=== PATIENT | female | born 1945 | race Caucasian/White ===

== ENCOUNTER → 2016-07-01 | Outpatient (CLI) | payer MEDICARE, BC ==
--- NOTE | 2016-07-01 11:11 | WWHP ---
DATE OF SERVICE: 07/01/2016 CHIEF COMPLAINT: The patient is here for her routine gynecologic exam and mammogram. HPI: This is a 70-year-old, G2, P2 with an LMP of 1989. The patient is without gynecologic complaints. 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 MEDICATIONS: 1. Lipitor generic 20 mg daily. 2. Labetalol 100 mg b.i.d. 3. Multivitamin daily. Allergies to SHELLFISH. No known drug allergies. 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 SOCIAL HISTORY: She denies tobacco and drug use and has 0 to 1 alcoholic drink per month. She is retired and likes to sing with her nondenominational group. She also has an elderly mother who has Alzheimer's. REVIEW OF SYSTEMS: Weight has been stable. RESPIRATORY: She has had some sinus issues that leads to coughing. She has seen Dr. Mccauley for this. She denies respiratory problems. GI: Occasional irritable bowel symptoms. She denies maltreatment or falling. : Occasional slight urinary leakage with coughing. PHYSICAL EXAM: Blood pressure 121/75. Height 5 feet 5 inches. Weight 186 pounds. Temperature 97.4, pulse 78. This a well-developed, well-nourished white female who is alert and oriented x3 in no acute distress. HEENT is within normal limits. NECK: Supple without mass or thyromegaly. CHEST AND LUNGS: Clear to auscultation. HEART: Regular rate and rhythm. Breasts are without mass or discharge. Axillary exam is negative for adenopathy. BACK: Negative for CVA tenderness. ABDOMEN: Soft, nontender, without palpable masses. PELVIC EXAM: External genitalia reveals mild to moderate atrophy without lesions. Cervix and vagina reveal mild to moderate atrophy without lesions. There is no evidence of prolapse. The uterus is midposition, nongravid size and nontender. There are no palpable adnexal masses or tenderness. Rectovaginal exam is negative for mass or tenderness and is negative for occult blood. EXTREMITIES: Nontender. IMPRESSION: 1. A 70-year-old menopausal female with normal gynecologic exam. 2. History of osteopenia, status post 5 years use of Fosamax in the past. PLAN: 1. Pap smear was deferred, since she had a normal one last year. 2. Self breast examination was discussed. 3. Mammogram will be done today. 4. She did receive a flu shot this past fall. 5. I have recommended screening colonoscopy, since she has never had this done. Dr. Zhao's card will be given to patient for this. 6. Osteoporosis prevention was discussed. Will plan on repeating a bone density testing in approximately one year. 7. She will return in one year.
--- NOTE | 2016-07-02 11:19 | MM ---
Reason for exam: screening (asymptomatic). Last mammogram was performed 1 year ago. History: Patient is postmenopausal and history of other cancer. Benign excisional biopsy of the left breast. Benign excisional biopsy of the right breast. Physical Findings: A clinical breast exam by your physician is recommended on an annual basis and results should be correlated with mammographic findings. MG 3D Screening Mammo W/Cad Bilateral CC and MLO view(s) were taken. Prior study comparison: June 18, 2015, bilateral MG screening mammo w CAD. May 01, 2014, bilateral MG screening mammo w CAD. The breast tissue is heterogeneously dense. This may lower the sensitivity of mammography. No significant changes when compared with prior studies. ASSESSMENT: Benign, BI-RAD 2 RECOMMENDATION: Routine screening mammogram of both breasts in 1 year.
== END ==
LOC: WWCWWP 08:35
PROVIDERS: ATTEND Obstetrics & Gynecology
DX: Z12.31 Encounter for screening mammogram for malignant neoplasm of breast (principal)
CPT/HCPCS: 77063; G0202

== ENCOUNTER → 2017-08-10 | Outpatient (CLI) | payer MEDICARE, BC ==
[2017-08-10 13:27] VITALS: BP 142/71; PULSE 62; RESP 18; TEMP 96.6; BMI 30.7
--- NOTE | 2017-08-10 14:45 | P.HPOB ---
History of Present Illness H&P Date: 08/10/17 Chief Complaint: The patient is here for her routine gynecologic exam and mammogram. This is a 71-year-old G2 PII within LMP of 1989. The patient is without gynecologic complaints and denies any postmenopausal bleeding. Review of Systems She denies respiratory, cardiac and G.I. problems. She denies maltreatment or problems with falling. : she infrequently has urinary leakage with coughing or sneezing. She had a brief episode of dizziness during her recent vacation but this did resolve. Past Medical History Past Medical History: Cancer (skin cancer), Hyperlipidemia, Hypertension Additional Past Medical History / Comment(s): Last Pap 05/2015. Last mammogram . History of osteopenia and is status post greater than 5 years use of Fosamax. History of Any Multi-Drug Resistant Organisms: None Reported Past Surgical History: Appendectomy, Tubal Ligation Additional Past Surgical History / Comment(s): Bilateral Breast biopsies, years ago Past Anesthesia/Blood Transfusion Reactions: No Reported Reaction Past Psychological History: No Psychological Hx Reported Smoking Status: Never smoker - Past Family History Father Family Medical History: Hypertension Additional Family Medical History / Comment(s): Bypass, leukemia,skin cancer Mother Additional Family Medical History / Comment(s): Uterine cancer Medications and Allergies Home Medications Medication Instructions Recorded Confirmed Type Atorvastatin [Lipitor] 1 mg PO HS 08/10/17 08/10/17 History Labetalol [Trandate] 200 mg PO BID 08/10/17 08/10/17 History Allergies Allergy/AdvReac Type Severity Reaction Status Date / Time shellfish derived [Shellfish] Allergy Abdominal Verified 08/10/17 13:48 Pain Exam - Vital Signs Vital signs: Vital Signs Temp Pulse Resp BP 08/10/17 13:23 96.6 F L 62 18 142/71 Intake and Output 08/09/17 08/10/17 08/10/17 22:59 06:59 14:59 Other: Weight 86.183 kg Patient Weight 08/11/17 06:59 Weight 86.183 kg This is a well-developed well-nourished white female who is alert and oriented times 3 in no acute distress. BMI 31. HEENT: Within normal limits. NECK: Supple without mass or thyromegaly. CHEST AND LUNGS: Clear to auscultation. HEART: Regular rate and rhythm. BREASTS: Are without mass or discharge. AXILLARY EXAM: Negative for adenopathy. BACK: Negative for CVA tenderness. ABDOMEN: Soft, nontender, without palpable masses. PELVIC EXAM: Normal external genitalia with moderate atrophy. Cervix and vagina appear normal with mild to moderate atrophy. There is no unusual discharge. There is no evidence of prolapse. The uterus is midposition, nongravid size and nontender. There are no palpable adnexal masses or tenderness. RECTAL EXAM: rectovaginal exam is negative for mass or tenderness and is negative for occult blood. EXTREMITIES: Nontender. IMPRESSION: 1. This is a 71-year-old menopausal female with normal gynecologic exam. 2. History of osteopenia status post greater than 5 years use of Fosamax. PLAN: 1. Pap smear was performed. 2. Self breast examination was discussed. 3. Screening mammogram will be done today. 4. Osteoporosis prevention was discussed. She will plan on repeating the bone density testing next year. 5. She did receive a flu shot this past fall. 6. She will return in one year.
--- NOTE | 2017-08-11 14:11 | MM ---
Reason for exam: screening (asymptomatic). Last mammogram was performed 1 year and 1 month ago. History: Patient is postmenopausal and history of other cancer. Benign excisional biopsy of the left breast. Benign excisional biopsy of the right breast. Physical Findings: A clinical breast exam by your physician is recommended on an annual basis and results should be correlated with mammographic findings. MG 3D Screening Mammo W/Cad Bilateral CC and MLO view(s) were taken. Prior study comparison: July 01, 2016, bilateral MG 3d screening mammo w/cad. June 18, 2015, bilateral MG screening mammo w CAD. The breast tissue is heterogeneously dense. This may lower the sensitivity of mammography. Stable oil cyst central right breast. No significant changes when compared with prior studies. ASSESSMENT: Negative, BI-RAD 1 RECOMMENDATION: Routine screening mammogram of both breasts in 1 year.
== END | disposition home or self-care (01) ==
LOC: WWCWWP 13:07
PROVIDERS: ATTEND Obstetrics & Gynecology
DX: Z12.31 Encounter for screening mammogram for malignant neoplasm of breast (principal)
CPT/HCPCS: 77063; 77067

== ENCOUNTER → 2018-05-19 | Outpatient (CLI) | payer MEDICARE, BC ==
[2018-05-19 09:09] LABS: Blood Urea Nitrogen 7 mg/dL (7-17)
--- NOTE | 2018-05-19 09:49 | CT ---
EXAMINATION TYPE: CT brain w con, CT sinus wo con DATE OF EXAM: 05/19/2018 COMPARISON: NONE HISTORY: Benign paroxysmal vertigo bilateral. CT DLP: 1012.7 (accession [id number]), 500.1 (accession [id number]) mGycm. Automated Exposure Control fo r Dose Reduction was Utilized. TECHNIQUE: CT scan of the brain and sinuses are both performed with IV contrast, axial images are obt ained, coronal reformatted images are also reviewed. Patient is injected with 100 cc of Isovue-300. FINDINGS: No abnormal enhancing parenchymal masses are identified. Ventricles and sulci are mildly pr ominent consistent with mild diffuse age-related cerebral atrophy. Persistent anterior metopic suture is incidentally seen. Sinus CT shows patchy web like opacification in the smaller right sphenoid sinus. There are nonformed or hypoplastic bilateral frontal sinuses. Remainder paranasal sinuses are clear. The ostiomeatal co mplex is patent bilaterally on the coronal images. Visualized portion of mastoid air cells show no abnormal opacification. The globes are intact bilate rally. IMPRESSION: 1. Perhaps mild acute right sphenoid sinusitis. Correlate clinically. 2. Mild diffuse age-related cerebral atrophy without suspicious enhancing intraparenchymal mass.
== END ==
LOC: RADCTMAIN 08:09
PROVIDERS: ATTEND Family Medicine
DX: G31.1 Senile degeneration of brain, not elsewhere classified (principal); J32.9 Chronic sinusitis, unspecified; H81.10 Benign paroxysmal vertigo, unspecified ear
CPT/HCPCS: 82565; 84520; 70460; 36415; 70486; Q9967

== ENCOUNTER → 2018-09-20 | Outpatient (CLI) | payer MEDICARE, BC ==
[2018-09-20 13:01] VITALS: BP 157/80; PULSE 72; RESP 18; TEMP 97.9; BMI 29.7
--- NOTE | 2018-09-20 13:50 | P.HPOB ---
History of Present Illness H&P Date: 09/20/18 Chief Complaint: The patient is here for her routine gynecologic exam and ma mmogram. This is a 72-year-old G2 PII with an LMP of 1989. The patient is without gynecologic complaints and denies any postmenopausal bleeding. Review of Systems She has lost about 5 pounds over the last year. She denies respiratory, cardiac and G.I. problems. She denies maltreatment or problems with falling. : she denies any significant problems with urinary leakage, but on long trips she will typically wear a pad. 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 History of osteopenia and is status post greater than 5 years use of Fosamax. 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 History of Any Multi-Drug Resistant Organisms: None Reported Past Surgical History: Appendectomy, Tonsillectomy, Tubal Ligation Additional Past Surgical History / Comment(s): Bilateral Breast biopsies, years ago Past Anesthesia/Blood Transfusion Reactions: No Reported Reaction Past Psychological History: No Psychological Hx Reported Smoking Status: Never smoker Past Alcohol Use History: Occasional (0-1 per month) Past Drug Use History: None Reported Additional History: She has been since 1986 and this is her 2nd marriage. She is retired and likes to sing with her nondenominational group. - Past Family History Father Family Medical History: Hypertension Additional Family Medical History / Comment(s): Bypass, leukemia,skin cancer, renal failure. Mother Family Medical History: Cancer, Dementia Additional Family Medical History / Comment(s): Uterine cancer Son(s) Family Medical History: Cancer Additional Family Medical History / Comment(s): Neuroendocrine cancer. Medications and Allergies Home Medications Medication Instructions Recorded Confirmed Type Atorvastatin [Lipitor] 1 mg PO HS 08/10/17 09/20/18 History Labetalol [Trandate] 300 mg PO BID 08/10/17 09/20/18 History Allergies Allergy/AdvReac Type Severity Reaction Status Date / Time shellfish derived [Shellfish] Allergy Abdominal Verified 09/20/18 12:56 Pain Exam Vital Signs Temp Pulse Resp BP Pulse Ox 09/20/18 12:58 97.9 F 72 18 157/80 96 Intake and Output 09/19/18 09/20/18 09/20/18 22:59 06:59 14:59 Other: Weight 83.461 kg Height 5'6", weight 184 pounds, BMI 29.7. This is a well-developed well-nourished white female who is alert and oriented times 3 in no acute distress. HEENT: Within normal limits. NECK: Supple without mass or thyromegaly. CHEST AND LUNGS: Clear to auscultation. HEART: Regular rate and rhythm. BREASTS: Are without mass or discharge. The left breast has central nipple inversion which the patient states she is had for many years. AXILLARY EXAM: Negative for adenopathy. BACK: Negative for CVA tenderness. ABDOMEN: Soft, nontender, without palpable masses. PELVIC EXAM:External genitalia has mild to moderate atrophy. There are several small inclusion cysts in the labia .the largest measures approximately 4 mm in the left labia. There are 3 other ones in the left each measuring about 2-3 mm. There is also a right labial inclusion cysts measuring approximately 2 to 3 mm. These all have a benign periods and the patient states that they have been there for many years. They are non-erythematous and nontender. Cervix and vagina appear normal with mild atrophy. There is no unusual discharge. There is no evidence of prolapse. The uterus is midposition, nongravid size and nontender. There are no palpable adnexal masses or tenderness. RECTAL EXAM: rectovaginal exam is negative for mass or tenderness and is negative for occult blood. EXTREMITIES: Nontender. IMPRESSION: 1. 72-year-old menopausal female with normal gynecologic exam. 2. Stable benign labial inclusion cysts. 3. History of osteopenia status post greater than 5 years use of Fosamax. PLAN: 1. Pap smear was deferred since she had a normal one on 08/10/2017. 2. Self breast awareness was discussed with the patient. 3. Screening mammogram will be done today. 4. Osteoporosis prevention was discussed. I have stressed the importance of adequate calcium, vitamin D and regular exercise. Recommended amounts of calcium and vitamin D were also discussed. I have recommended repeating the bone density tests since her last one has been about 5 years. She would like to do this next year. 5. She did receive a flu shot this past fall. 6.She was advised to return in one year for her annual well woman exam.
--- NOTE | 2018-09-22 10:30 | MM ---
Reason for exam: screening (asymptomatic). Last mammogram was performed 1 year and 1 month ago. History: Patient is postmenopausal and history of other cancer. Benign excisional biopsy of the left breast. Benign excisional biopsy of the right breast. Physical Findings: A clinical breast exam by your physician is recommended on an annual basis and results should be correlated with mammographic findings. MG 3D Screening Mammo W/Cad Bilateral CC and MLO view(s) were taken. Prior study comparison: August 10, 2017, bilateral MG 3d screening mammo w/cad. July 01, 2016, bilateral MG 3d screening mammo w/cad. The breast tissue is heterogeneously dense. This may lower the sensitivity of mammography. No significant changes when compared with prior studies. ASSESSMENT: Benign, BI-RAD 2 RECOMMENDATION: Routine screening mammogram of both breasts in 1 year.
== END | disposition home or self-care (01) ==
LOC: WWCWWP 12:30
PROVIDERS: ATTEND Obstetrics & Gynecology
DX: Z12.31 Encounter for screening mammogram for malignant neoplasm of breast (principal)
CPT/HCPCS: 77063; 77067

== ENCOUNTER → 2021-04-16 | Outpatient (CLI) | payer MEDICARE, BC ==
[2021-04-16 09:45] VITALS: BP 156/76; PULSE 61; RESP 16; TEMP 98.1
--- NOTE | 2021-04-16 10:34 | P.HPOB ---
History of Present Illness H&P Date: 04/16/21 Chief Complaint: The patient is here for her routine gynecologic exam and ma mmogram. This is a 75-year-old with an LMP of 1989. The patient is without gynecologic complaints. Review of Systems The patient has lost 24 pounds over the last 2 years. She has been trying to lose weight with dietary changes and exercise. She also attributes some weight loss 2 not eating out due to the pandemic. She denies respiratory, cardiac, or G.I. problems. 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 History of osteopenia and is status post greater than 5 years use of Fosamax. 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 History of Any Multi-Drug Resistant Organisms: None Reported Past Surgical History: Appendectomy, Tonsillectomy, Tubal Ligation Additional Past Surgical History / Comment(s): Bilateral Breast biopsies, years ago Past Anesthesia/Blood Transfusion Reactions: No Reported Reaction Past Psychological History: No Psychological Hx Reported Smoking Status: Never smoker Past Alcohol Use History: Occasional (0-1 month) Past Drug Use History: None Reported Additional History: She has been since 1986 and this is her second marriage. She is retired and likes to sing with her [employer]. - Past Family History Father Family Medical History: Hypertension Additional Family Medical History / Comment(s): Bypass, leukemia,skin cancer, renal failure. Mother Family Medical History: Cancer, Dementia Additional Family Medical History / Comment(s): Uterine cancer Son(s) Family Medical History: Cancer Additional Family Medical History / Comment(s): Neuroendocrine cancer. from surgical Complications. Medications and Allergies Home Medications Medication Instructions Recorded Confirmed Type Atorvastatin [Lipitor] 1 mg PO HS 08/10/17 04/16/21 History Labetalol [Trandate] 300 mg PO BID 08/10/17 04/16/21 History Multivitamin [Multivitamins Adult 1 each PO DAILY 04/16/21 04/16/21 History Gummies] Allergies Allergy/AdvReac Type Severity Reaction Status Date / Time shellfish derived [Shellfish] Allergy Abdominal Verified 04/16/21 09:34 Pain Exam Vital Signs Temp Pulse Resp BP Pulse Ox 04/16/21 09:34 98.1 F 61 16 156/76 100 Intake and Output 04/15/21 04/16/21 04/16/21 22:59 06:59 14:59 Other: Weight 72.575 kg Height 5 feet 4-1/2 inches, weight 160 pounds, BMI 27.0. This is a well-developed well-nourished white female who is alert and oriented times 3 in no acute distress. HEENT: Within normal limits. NECK: Supple without mass or thyromegaly. CHEST AND LUNGS: Clear to auscultation. HEART: Regular rate and rhythm. BREASTS: Are without mass or discharge. There is central nipple inversion of the left nipple which she has had for many years. AXILLARY EXAM: Negative for adenopathy. BACK: Negative for CVA tenderness. ABDOMEN: Soft, nontender, without palpable masses. PELVIC EXAM: Normal external genitalia with mild atrophy. Cervix and vagina appear normal with mild atrophy. There is no unusual discharge. There is no evidence of prolapse. The uterus is midposition, nongravid size and nontender. There are no palpable adnexal masses or tenderness. RECTAL EXAM: Rectovaginal exam is negative for mass or tenderness and is negative for occult blood. EXTREMITIES: Nontender. IMPRESSION: 1. 75-year-old menopausal female with normal gynecologic exam. 2. History of osteopenia status post greater than 5 years use of Fosamax in the past. PLAN: 1. Pap smears have been discontinued. 2. Self breast awareness was discussed with the patient. We have also discussed symptoms associated with inflammatory breast cancer. 3. Screening mammogram will be done today. 4. Osteoporosis prevention was discussed. I have stressed the importance of adequate calcium, vitamin D and regular exercise. Recommended amounts of calcium and vitamin D were also discussed. She has an appointment for a bone density test in May 2021. The order slip was given to the patient for this. 5. She has completed her Covid vaccination series and did receive a booster as well. She did get her flu shot this fall. 6. She has been doing colorectal cancer screening with Cologuard testing through her PCP. 7. The patient was advised to return in 1-2 years for her well woman examination.
--- NOTE | 2021-04-17 11:58 | MM ---
Reason for exam: screening (asymptomatic). Last mammogram was performed 2 years and 7 months ago. History: Patient is postmenopausal and history of other cancer. Benign excisional biopsy of the left breast. Benign excisional biopsy of the right breast. Physical Findings: A clinical breast exam by your physician is recommended on an annual basis and results should be correlated with mammographic findings. MG 3D Screening Mammo W/Cad Bilateral CC and MLO view(s) were taken. Prior study comparison: September 20, 2018, bilateral MG 3d screening mammo w/cad. August 10, 2017, bilateral MG 3d screening mammo w/cad. The breast tissue is heterogeneously dense. This may lower the sensitivity of mammography. No significant changes when compared with prior studies. ASSESSMENT: Benign, BI-RAD 2 RECOMMENDATION: Routine screening mammogram of both breasts in 1 year.
== END ==
LOC: WWCWWP 09:12
PROVIDERS: ATTEND Obstetrics & Gynecology
DX: Z12.31 Encounter for screening mammogram for malignant neoplasm of breast (principal); Z01.419 Encounter for gynecological examination (general) (routine) without abnormal findings; E78.5 Hyperlipidemia, unspecified; I10 Essential (primary) hypertension; Z87.39 Personal history of other diseases of the musculoskeletal system and connective tissue; Z79.899 Other long term (current) drug therapy; Z91.013 Allergy to seafood
CPT/HCPCS: 77063; 77067

== ENCOUNTER → 2021-05-26 | Outpatient (CLI) | payer MEDICARE, BC ==
--- NOTE | 2021-05-27 07:30 | BD ---
EXAMINATION TYPE: Axial Bone Density DATE OF EXAM: 05/26/2021 COMPARISON: 2013 CLINICAL HISTORY: Postmenopausal screening Height: 5 FT 4 IN Weight: 164 FRAX RISK QUESTIONS: Alcohol (3 or more units per day): NO Family History (Parent hip fracture): NO Glucocorticoids (More than 3mos): NO (Ex: prednisone, prednisolone, methylprednisolone, dexamethasone, and hydrocortisone). History of Fracture in Adulthood: NO Secondary Osteoporosis: 1. Type 1 Diabetes: NO 2. Hyperthyroidism: NO 3. Menopause before 45: NO 4. Malnutrition: NO 5. Chronic liver disease: NO Rheumatoid Arthritis: NO Current Tobacco Use: NO RISK FACTORS HISTORY OF: Surgery to Spine/Hip(right/left)/Wrist (right/left): NO Family History of Osteoporosis: YES Active: YES Diet low in dairy products/other sources of calcium: NO Postmenopausal woman: YES Take estrogen and/or progesterone medications: NO Lost more than 2 inches in height since high school: YES Frequent falls: NO Poor Health: GOOD Hyperparathyroidism: NO Adrenal Insufficiency: NO MEDICATIONS: Additional Medications: BLOOD PRESSURE MEDS, ATORVASTATIN, Additional History: EXAM MEASUREMENTS: Bone mineral densitometry was performed using the [employer] System. Bone mineral density as measured about the Lumbar spine is: ----- L1-L4(G/cm2): 1.327 T Score Values are as follows: ----- L2: 1.9 ----- L3: 1.9 ----- L4: 0.1 ----- L1-L4: 1.2 Bone mineral density has: DECREASED -4.7 % since study of: 2013 Bone mineral density about the R hip (g/cm2): 0.846 Bone mineral density about the L hip (g/cm2): 0.846 T Score values are as follows: -----R Neck: -1.4 -----L Neck: -1.4 -----R Total: -0.8 -----L Total: -0.5 Bone mineral density has: DECREASED -6.0 % since study of: 2013 IMPRESSION: Osteopenia (T Score between -2.5 and -1). There is slightly increased risk of fracture and the patient may be considered for treatment. Re-Screen 2-5 years. NOTE: T-SCORE=SD OF THE YOUNG ADULT MEAN.
--- NOTE | 2021-05-27 10:32 | P.PN ---
Progress Note - Text Progress Note Date: 05/27/21 OUTPATIENT FOLLOW-UP NOTE TEST(S)/RESULTS: Bone density test on 05/26/2021 shows osteopenia slight decrease from her 2014 bone density test. METHOD OF NOTIFICATION: The patient was notified by phone. PATIENT COMMENTS: She states she has been trying to exercise more. DIAGNOSIS: Osteopenia. DISCUSSION: She has previously taken 5 or more years of Fosamax. I have stressed the importance of getting adequate calcium, vitamin D, and regular exercise. PLAN: We will plan on repeating bone density testing in 3 years.
== END | disposition home or self-care (01) ==
LOC: RADBDWWP 15:28
PROVIDERS: ATTEND Obstetrics & Gynecology
DX: M85.89 Other specified disorders of bone density and structure, multiple sites (principal); Z78.0 Asymptomatic menopausal state
CPT/HCPCS: 77080

== ENCOUNTER → 2022-06-03 | Outpatient (CLI) | payer MEDICARE, BC ==
[2022-06-03 09:20] VITALS: BP 158/78; PULSE 53; RESP 16; TEMP 98.4
--- NOTE | 2022-06-03 09:56 | P.HPOB ---
History of Present Illness H&P Date: 06/03/22 Chief Complaint: The patient is here for her routine gynecologic exam and ma mmogram. This is a 76-year-old with an LMP of 1989. The patient is without gynecologic complaints and denies any postmenopausal bleeding. Review of Systems The patient has gained 16 pounds over the last year. She denies respiratory, cardiac, or G.I. problems. HEENT: She has been having some issues with some secretions from her right eyelid and has been seeing her eye doctor about this. 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 History of osteopenia and is status post greater than 5 years use of Fosamax. 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 History of Any Multi-Drug Resistant Organisms: None Reported Past Surgical History: Appendectomy, Tonsillectomy, Tubal Ligation Additional Past Surgical History / Comment(s): Bilateral Breast biopsies, years ago Past Anesthesia/Blood Transfusion Reactions: No Reported Reaction Past Psychological History: No Psychological Hx Reported Smoking Status: Never smoker Past Alcohol Use History: Occasional (0-1 per month) Past Drug Use History: None Reported Additional History: She has been since 1986 and this is her second ma rriage. She is not sexually active. 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 - Past Family History Father Family Medical History: Hypertension Additional Family Medical History / Comment(s): Bypass, leukemia,skin cancer, renal failure. Mother Family Medical History: Cancer, Dementia Additional Family Medical History / Comment(s): Uterine cancer Son(s) Family Medical History: Cancer Additional Family Medical History / Comment(s): Neuroendocrine cancer. from surgical Complications. Medications and Allergies Home Medications Medication Instructions Recorded Confirmed Type Atorvastatin [Lipitor] 1 mg PO HS 08/10/17 06/03/22 History Labetalol [Trandate] 300 mg PO BID 08/10/17 06/03/22 History Multivitamin [Multivitamins Adult 1 each PO DAILY 04/16/21 06/03/22 History Gummies] Allergies Allergy/AdvReac Type Severity Reaction Status Date / Time shellfish derived [Shellfish] Allergy Abdominal Verified 06/03/22 09:16 Pain Exam Vital Signs Temp Pulse Resp BP Pulse Ox 06/03/22 09:17 98.4 F 53 L 16 158/78 95 Intake and Output 06/02/22 06/03/22 06/03/22 22:59 06:59 14:59 Other: Weight 79.832 kg Height 5 feet 4 inches, weight 176 pounds, BMI 30.2. This is a well-developed well-nourished white female who is alert and oriented times 3 in no acute distress. HEENT: Within normal limits. NECK: Supple without mass or thyromegaly. CHEST AND LUNGS: Clear to auscultation. HEART: Regular rate and rhythm. BREASTS: Are without mass or discharge. AXILLARY EXAM: Negative for adenopathy. BACK: Negative for CVA tenderness. ABDOMEN: Soft, nontender, without palpable masses. PELVIC EXAM: External genitalia reveals mild atrophy. There are 3 small benign- appearing dermal inclusion cysts in the left labia majora each measuring 5 mm or less. These are nontender and non-erythematous. Cervix and vagina appear normal with mild atrophy. There is no unusual discharge. There is no evidence of prolapse. The uterus is midposition, nongravid size and nontender. There are no palpable adnexal masses or tenderness. RECTAL EXAM: Rectovaginal exam is negative for mass or tenderness and is negative for occult blood. EXTREMITIES: Nontender. IMPRESSION: 1. 76-year-old menopausal female with benign-appearing small left vulvar inclusion cysts, otherwise unremarkable gynecologic exam. 2. History of osteopenia status post greater than 5 years use of Fosamax in the past. PLAN: 1. Pap smears have been discontinued. 2. Self breast awareness was discussed with the patient. We have also discussed symptoms associated with inflammatory breast cancer. 3. Screening mammogram will be done today. 4. Osteoporosis prevention was discussed. I have stressed the importance of adequate calcium, vitamin D and regular exercise. Recommended amounts of calcium and vitamin D were also discussed. Her last bone density test was done on 05/26/2021. We will plan on repeating it in approximately 2 years. 5. She has completed her Covid vaccination series and has received 2 boosters. 6. She was advised to return in one year for her annual well woman exam.
--- NOTE | 2022-06-04 09:06 | MM ---
Reason for Exam: Screening (asymptomatic). Last mammogram was performed 1 year(s) and 2 month(s) ago. Patient History: Menarche at age 10. First Full-Term at age 22. Postmenopausal. Benign Excisional Biopsy on the right side. Benign Excisional Biopsy on the left side. Risk Values: Felicia 5 year model risk: 2.3%. NCI Lifetime model risk: 4.1%. Prior Study Comparison: 08/10/2017 Bilateral Screening Mammogram, [facility]. 09/20/2018 Bilateral Screening Mammogram, [facility]. 04/16/2021 Bilateral Screening Mammogram, [facility]. Tissue Density: The breast tissue is heterogeneously dense. This may lower the sensitivity of mammography. Findings: Analyzed By CAD. There is no suspicious group of microcalcifications or new suspicious mass in either breast. Stable chronic nodularity within the right breast. Stable benign-appearing calcifications within both breasts. Overall Assessment: Benign, BI-RAD 2 Management: Screening Mammogram of both breasts in 1 year. A clinical breast exam by your physician is recommended on an annual basis and results should be correlated with mammographic findings. Electronically signed and approved by: Mike Zurita D.O.
== END ==
LOC: WWCWWP 09:07
PROVIDERS: ATTEND Obstetrics & Gynecology
DX: Z12.31 Encounter for screening mammogram for malignant neoplasm of breast (principal); Z01.411 Encounter for gynecological examination (general) (routine) with abnormal findings; E78.5 Hyperlipidemia, unspecified; I10 Essential (primary) hypertension; Z87.310 Personal history of (healed) osteoporosis fracture; Z91.013 Allergy to seafood
CPT/HCPCS: 77063; 77067

== ENCOUNTER → 2023-06-22 | Outpatient (CLI) | payer MEDICARE, BC ==
[2023-06-22 13:46] VITALS: BP 176/74; PULSE 60; RESP 17; TEMP 98.4
--- NOTE | 2023-06-22 14:11 | P.HPOB ---
History of Present Illness H&P Date: 06/22/23 Chief Complaint: The patient is here for her routine gynecologic exam and ma mmogram. This is a 77-year-old 001 with an LMP of 1989. The patient is without gynecologic complaints and denies any postmenopausal bleeding. Review of Systems The patient has lost 2 pounds over the last year. She denies respiratory, cardiac, or G.I. problems. 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 Hi story of osteopenia and is status post greater than 5 years use of Fosamax. 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 History of Any Multi-Drug Resistant Organisms: None Reported Past Surgical History: Appendectomy, Tonsillectomy, Tubal Ligation Additional Past Surgical History / Comment(s): Bilateral Breast biopsies, years ago. Skin cancer removal. Past Anesthesia/Blood Transfusion Reactions: No Reported Reaction Past Psychological History: No Psychological Hx Reported Smoking Status: Never smoker Past Alcohol Use History: Rare (2 per year.) Past Drug Use History: None Reported Additional History: She has been since 1986 and this is her second marriage. She is not sexually active. 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 - Past Family History Father Family Medical History: Hypertension Additional Family Medical History / Comment(s): Bypass, leukemia,skin cancer, renal failure. Mother Family Medical History: Cancer, Dementia Additional Family Medical History / Comment(s): Uterine cancer Son(s) Family Medical History: Cancer Additional Family Medical History / Comment(s): Neuroendocrine cancer. from surgical Complications. Medications and Allergies Home Medications Medication Instructions Recorded Confirmed Type Atorvastatin [Lipitor] 1 mg PO HS 08/10/17 06/03/22 History Labetalol [Trandate] 300 mg PO BID 08/10/17 06/03/22 History Multivitamin [Multivitamins Adult 1 each PO DAILY 04/16/21 06/03/22 History Gummies] Labetalol HCl 300 mg PO DAILY 06/22/23 06/22/23 History Allergies Allergy/AdvReac Type Severity Reaction Status Date / Time shellfish derived [Shellfish] Allergy Abdominal Verified 06/22/23 13:28 Pain Exam Vital Signs Temp Pulse Resp BP Pulse Ox 06/22/23 13:29 98.4 F 60 17 176/74 96 Intake and Output 06/21/23 06/22/23 06/22/23 22:59 06:59 14:59 Other: Weight 78.925 kg Height 5 feet 4 inches, weight 174 pounds, BMI 29.9. This is a well-developed well-nourished white female who is alert and oriented times 3 in no acute distress. HEENT: Within normal limits. NECK: Supple without mass or thyromegaly. CHEST AND LUNGS: Clear to auscultation. HEART: Regular rate and rhythm. BREASTS: Are without mass or discharge. AXILLARY EXAM: Negative for adenopathy. BACK: Negative for CVA tenderness. ABDOMEN: Soft, nontender, without palpable masses. PELVIC EXAM: External genitalia reveals 3 stable benign-appearing left labial inclusion cysts, each measuring 5 mm or less. The external genitalia reveals mild to moderate atrophy. Cervix and vagina appear normal with mild to moderate atrophy. There is no unusual discharge. There is no evidence of prolapse. The uterus is midposition, nongravid size and nontender. There are no palpable adnexal masses or tenderness. RECTAL EXAM: Rectovaginal exam is negative for mass or tenderness and is negative for occult blood. EXTREMITIES: Nontender. IMPRESSION: 1. 77-year-old menopausal female with benign gynecologic exam. Stable benign left labial inclusion cysts. 2. History of osteopenia status post 5 years use of Fosamax in the past. 3. Elevated blood pressure with history of chronic hypertension. PLAN: 1. Pap smears have been discontinued. 2. Self breast awareness was discussed with the patient. We have also discussed symptoms associated with inflammatory breast cancer. 3. Screening mammogram will be done today. 4. We have discussed her elevated blood pressure. I have recommended that she check her own blood pressure on a regular basis since she does have a cuff. She will follow up with her PCP for blood pressure elevations. 5. Osteoporosis prevention was discussed. I have stressed the importance of adequate calcium, vitamin D and regular exercise. Recommended amounts of calcium and vitamin D were also discussed. Her last bone density test was done on 05/26/2021. We will plan on repeating this again next year. 6. She had a Cologuard test in April 2023 which was normal per the patient. 7. She was advised to return in one year for her annual well woman exam.
--- NOTE | 2023-06-23 10:02 | MM ---
Reason for Exam: Screening (asymptomatic). Last screening mammogram was performed 12 month(s) ago. Patient History: Menarche at age 10. First Full-Term at age 22. Postmenopausal. Benign Excisional Biopsy on the right side. Benign Excisional Biopsy on the left side. Risk Values: Felicia 5 year model risk: 2.3%. NCI Lifetime model risk: 3.8%. Prior Study Comparison: 09/20/2018 Bilateral Screening Mammogram, [facility]. 04/16/2021 Bilateral Screening Mammogram, [facility]. 06/03/2022 Bilateral MG 3D screening mammo w/cad, [facility]. Tissue Density: There are scattered fibroglandular densities. Findings: Analyzed By CAD. There is no suspicious group of microcalcifications or new suspicious mass. Benign-appearing calcifications bilaterally. Overall Assessment: Negative, BI-RAD 1 Management: Screening Mammogram of both breasts in [address] [facility] will attempt to contact patient to return for supplemental views and ultrasound if indicated. Patient should continue monthly self-breast exams. A clinical breast exam by your physician is recommended on an annual basis. This exam should not preclude additional follow-up of suspicious palpable abnormalities. Note on Felicia scores and lifetime risk: 1. A Felicia score greater than 3% is considered moderate risk. If this is the case, consider specialist referral to assess eligibility for a risk reducing agent. 2. If overall lifetime risk for the development of breast cancer is 20% or higher, the patient may qualify for future screening with alternating mammogram and breast MRI. Electronically signed and approved by: Jose Antonio Almanza DO
== END ==
LOC: WWCWWP 13:19
PROVIDERS: ATTEND Obstetrics & Gynecology
DX: Z12.31 Encounter for screening mammogram for malignant neoplasm of breast (principal); M85.80 Other specified disorders of bone density and structure, unspecified site; N90.89 Other specified noninflammatory disorders of vulva and perineum; E78.5 Hyperlipidemia, unspecified; I10 Essential (primary) hypertension; Z79.899 Other long term (current) drug therapy; Z85.820 Personal history of malignant melanoma of skin; Z85.828 Personal history of other malignant neoplasm of skin; Z90.49 Acquired absence of other specified parts of digestive tract; Z91.013 Allergy to seafood
CPT/HCPCS: 77063; 77067

== ENCOUNTER → 2023-08-07 | Outpatient (CLI) | payer MEDICARE, BC ==
--- NOTE | 2023-08-12 08:41 | MR ---
EXAMINATION TYPE: MR abdomen wo/w con DATE OF EXAM: 08/07/2023 11:21 AM CLINICAL INDICATION:Female, 77 years old with history of D30.00 BENIGN NEOPLASM OF UNSPECIFIED KIDNEY ; PHH, Increased BP, Benign tumor adrenal COMPARISON: None TECHNIQUE: Multiplanar multi-sequence imaging was performed without contrast. Post contrast imaging was performed. Post IV contrast subtraction images were also submitted for review. IV Contrast: 7 cc Gadavist FINDINGS: LOWER CHEST: Heart is mildly enlarged for size. ABDOMEN Liver: No evidence for hepatic steatosis or cirrhosis. Scattered high T2 signal cysts are seen throug hout the liver. Some of this have been septations versus adjacent cyst. Arterial phase enhancing obse rvation right hepatic lobe segment 6 becomes isointense on delayed imaging suggesting shunt phenomeno n. Gallbladder and Bile ducts: No evidence for ductal dilation, or biliary stricture or evidence of chol edocholithiasis. The gallbladder is within normal limits. Pancreas: No ductal dilation. No evidence for solid mass. High T2 cystic lesion in the pancreatic nec k measuring 9 x 5 mm. Spleen: Normal for size. Adrenal glands: No adrenal nodules visualized. Kidneys: No evidence for obstructive uropathy. No suspicious renal masses. Stomach and Bowel: No evidence for bowel wall thickening or evidence for obstruction. Retroperitoneum/Peritoneum: No evidence of pneumoperitoneum or free fluid. Vasculature: No aortic aneurysm. Musculoskeletal: The osseous structures appear intact. Lymph Nodes: No gross evidence for lymphadenopathy. Abdominal wall: Unremarkable. IMPRESSION: 1. No adrenal nodules visualized. No mass identified in the abdomen 2. Simple and slightly complex appearing hepatic cysts. 3. Simple appearing left renal cyst. 4. 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 Follow-up in one year if MRI MRCP with IV contrast recommended to ensure stability.
== END | disposition home or self-care (01) ==
LOC: RADMRIMAIN 09:52
PROVIDERS: ATTEND Family Medicine
DX: K76.89 Other specified diseases of liver (principal); N28.1 Cyst of kidney, acquired; K86.2 Cyst of pancreas
CPT/HCPCS: 74183; A9585

== ENCOUNTER → 2024-06-27 | Outpatient (CLI) | payer MEDICARE, BC ==
--- NOTE | 2024-06-27 12:01 | P.HPOB ---
History of Present Illness H&P Date: 06/27/24 Chief Complaint: The patient is here for her routine gynecologic exam and ma mmogram. This is an 78-year-old with an LMP of 1989. The patient is without gynecologic complaints. Review of Systems The patient has gained 4 pounds over the last year. She denies respiratory, cardiac, or G.I. problems. 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 History of osteopenia and is status post greater than 5 years use of Fosamax. 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 History of Any Multi-Drug Resistant Organisms: None Reported Past Surgical History: Appendectomy, Tonsillectomy, Tubal Ligation Additional Past Surgical History / Comment(s): Bilateral Breast biopsies, years ago. Skin cancer removal. Past Anesthesia/Blood Transfusion Reactions: No Reported Reaction Past Psychological History: No Psychological Hx Reported Smoking Status: Never smoker Past Alcohol Use History: None Reported Past Drug Use History: None Reported Additional History: She has been since 1986 and this is her second marriage. She is not sexually active. 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 - Past Family History Father Family Medical History: Hypertension Additional Family Medical History / Comment(s): Bypass, leukemia,skin cancer, renal failure. Mother Family Medical History: Cancer, Dementia Additional Family Medical History / Comment(s): Uterine cancer Son(s) Family Medical History: Cancer Additional Family Medical History / Comment(s): Neuroendocrine cancer. from surgical Complications. Medications and Allergies Home Medications Medication Instructions Recorded Confirmed Type Atorvastatin [Lipitor] 20 mg PO HS 08/10/17 06/22/23 History Multivitamin [Multivitamins Adult 1 each PO DAILY 04/16/21 06/22/23 History Gummies] Labetalol HCl 300 mg PO DAILY 06/22/23 06/22/23 History amLODIPine BESYLATE/BENAZEPRIL 1 capsule PO DAILY 06/27/24 06/27/24 History [amLODIPine BESYLATE/BENAZEPRIL 5-20 mg] hydroCHLOROthiazide 1 capsule PO DAILY 06/27/24 06/27/24 History Allergies Allergy/AdvReac Type Severity Reaction Status Date / Time shellfish derived [Shellfish] Allergy Abdominal Verified 06/22/23 13:28 Pain Exam Intake and Output 06/26/24 06/27/24 06/27/24 22:59 06:59 14:59 Other: Weight 80.739 kg Blood pressure 145/80, height 5 feet 5 inches, weight 178 pounds, BMI 29.6, temperature 97.2, pulse 60, pulse oximeter 97%. This is a well-developed well-nourished white female who is alert and oriented times 3 in no acute distress. HEENT: Within normal limits. NECK: Supple without mass or thyromegaly. CHEST AND LUNGS: Clear to auscultation. HEART: Regular rate and rhythm. BREASTS: Are without mass or discharge. AXILLARY EXAM: Negative for adenopathy. BACK: Negative for CVA tenderness. ABDOMEN: Soft, nontender, without palpable masses. PELVIC EXAM: External genitalia reveals 3 stable left labia inclusion cysts each measuring approximately 0.5 cm. These are nontender and are not erythematous. The external genitalia is otherwise unremarkable with mild to moderate atrophy. Cervix and vagina appear normal with mild to moderate atrophy. There is no unusual discharge. There is no evidence of prolapse. The uterus is midposition, nongravid size and nontender. There are no palpable adnexal masses or tenderness. RECTAL EXAM: Rectovaginal exam is negative for mass or tenderness and is negative for occult blood. EXTREMITIES: Nontender. IMPRESSION: 1. 78-year-old menopausal female with stable left labial inclusion cysts which appear benign. Otherwise unremarkable gynecologic exam. 2. History of osteopenia status post greater than 5 years use of Fosamax in the past. 3. Elevated blood pressure with history of chronic hypertension. PLAN: 1. Pap smears have been discontinued. 2. Self breast awareness was discussed with the patient. We have also discussed symptoms associated with inflammatory breast cancer. 3. Screening mammogram will be done today. 4. Osteoporosis prevention was discussed. We will plan on repeating the bone density test since it has been about 3 years since her last 1. The order slip was given to the patient for this. 5. Colorectal cancer screening is done with Cologuard testing through her PCP. 6. She was instructed to check her blood pressures at home on a regular basis since she does have a blood pressure cuff. She will follow-up with her PCP for blood pressure elevations. 7. She was advised to return in one year for her annual well woman exam.
[2024-06-27 12:02] VITALS: BP 145/80; PULSE 60; RESP 16; TEMP 97.2
--- NOTE | 2024-06-27 12:18 | MM ---
Reason for Exam: Screening (asymptomatic). Last screening mammogram was performed 12 month(s) ago. Patient History: Menarche at age 10. First Full-Term at age 22. Postmenopausal. Benign Excisional Biopsy on the right side. Benign Excisional Biopsy on the left side. Risk Values: Felicia 5 year model risk: 2.2%. NCI Lifetime model risk: 3.4%. Prior Study Comparison: 04/16/2021 Bilateral Screening Mammogram, [facility]. 06/03/2022 Bilateral MG 3D screening mammo w/cad, [facility]. 06/22/2023 Bilateral MG 3D screening mammo w/cad, [facility]. Tissue Density: There are scattered areas of fibroglandular density. Findings: Analyzed By CAD. Right breast: There is no suspicious group of microcalcifications or new suspicious mass. Benign-appearing calcifications right breast. Left breast: There is no suspicious group of microcalcifications or new suspicious mass. Benign-appearing calcifications left breast. Overall Assessment: Benign, BI-RAD 2 Management: Screening Mammogram of both breasts in [address] [facility] will attempt to contact patient to return for supplemental views and ultrasound if indicated. Patient should continue monthly self-breast exams. A clinical breast exam by your physician is recommended on an annual basis. This exam should not preclude additional follow-up of suspicious palpable abnormalities. Note on Felicia scores and lifetime risk: 1. A Felicia score greater than 3% is considered moderate risk. If this is the case, consider specialist referral to assess eligibility for a risk reducing agent. 2. If overall lifetime risk for the development of breast cancer is 20% or higher, the patient may qualify for future screening with alternating mammogram and breast MRI. [facility], , 06/27/2024 12:13 PM. Electronically signed and approved by: Jose Antonio Almanza DO
== END ==
LOC: WWCWWP 11:12
PROVIDERS: ATTEND Obstetrics & Gynecology
DX: Z12.31 Encounter for screening mammogram for malignant neoplasm of breast (principal); Z00.00 Encounter for general adult medical examination without abnormal findings; I10 Essential (primary) hypertension; N95.9 Unspecified menopausal and perimenopausal disorder; N90.7 Vulvar cyst; Z87.39 Personal history of other diseases of the musculoskeletal system and connective tissue; Z91.013 Allergy to seafood
CPT/HCPCS: 77063; 77067

== ENCOUNTER → 2024-08-04 | Outpatient (CLI) | payer MEDICARE, BC ==
--- NOTE | 2024-08-05 01:58 | CA ---
Transthoracic Echo Report Name: Wendi Jeffries Age: 78 Gender: F : 1945 Exam Date: 08/04/2024 16:32 Exam Location: [facility] Ht (in): 65 Wt (lb): 172 Ordering Physician: Robert Martinez MD Attending/Referring Phys: Janna Quiroga [facility] [employer] Resource [employer] Faiza Pickering RDCS Procedure CPT: Indications: R01.1 CARDIAC MURMUR, UNSPECIFIED Cardiac Hx: Technical Quality: Fair Contrast 1: Total Dose (mL): Contrast 2: Total Dose (mL): MEASUREMENTS (Male / Female) Normal Values 2D ECHO LV Diastolic Diameter PLAX 4.0 cm 4.2 - 5.9 / 3.9 - 5.3 cm LV Systolic Diameter PLAX 2.3 cm IVS Diastolic Thickness 1.6 cm 0.6 - 1.0 / 0.6 - 0.9 cm LVPW Diastolic Thickness 1.2 cm 0.6 - 1.0 / 0.6 - 0.9 cm LV Relative Wall Thickness 0.7 RV Internal Dim ED PLAX 2.5 cm LVOT Diameter 1.9 cm LV Diastolic Volume MOD BP 82.4 cm??? 67 - 155 / 56 - 104 cm??? LV Systolic Volume MOD BP 30.1 cm??? 22 - 58 / 19 - 49 cm??? LV Ejection Fraction MOD BP 63.5 % >= 55 % LV Cardiac Index MOD BP 1667.9 cm???/min???m??? LV Diastolic Volume MOD 4C 85.2 cm??? LV Systolic Volume MOD 4C 30.0 cm??? LV Ejection Fraction MOD 4C 64.7 % LV Cardiac Index MOD 4C 1758.8 cm???/min???m??? LV Diastolic Length 4C 7.7 cm LV Systolic Length 4C 6.1 cm LV Diastolic Volume MOD 2C 80.1 cm??? LV Systolic Volume MOD 2C 31.0 cm??? LV Ejection Fraction MOD 2C 61.3 % LV Cardiac Index MOD 2C 1565.4 cm???/min???m??? LV Diastolic Length 2C 7.7 cm LV Systolic Length 2C 6.3 cm LA Volume 50.6 cm??? 18 - 58 / 22 - 52 cm??? LA Volume Index 26.5 cm???/m??? 16 - 28 cm???/m??? M-MODE Aortic Root Diameter MM 2.8 cm LA Systolic Diameter MM 4.4 cm LA Ao Ratio MM 1.6 AV Cusp Separation MM 2.2 cm DOPPLER AV Peak Velocity 148.2 cm/s AV Peak Gradient 8.8 mmHg AV Mean Velocity 103.5 cm/s AV Mean Gradient 4.8 mmHg AV Velocity Time Integral 37.0 cm LVOT Peak Velocity 171.3 cm/s LVOT Peak Gradient 11.7 mmHg LVOT Velocity Time Integral 38.2 cm LVOT Stroke Volume 108.4 cm??? LVOT Stroke Volume Index 58.4 ml/m??? LVOT Cardiac Index 3457.5 cm???/min???m??? AV Area Cont Eq vti 2.9 cm??? AV Area Cont Eq pk 3.3 cm??? MV Area PHT 3.6 cm??? Mitral E Point Velocity 84.0 cm/s Mitral A Point Velocity 66.0 cm/s Mitral E to A Ratio 1.3 MV Deceleration Time 211.1 ms MV E' Velocity 5.7 cm/s Mitral E to MV E' Ratio 14.7 TR Peak Velocity 289.1 cm/s TR Peak Gradient 33.4 mmHg Right Ventricular Systolic Press 37.0 mmHg FINDINGS Left Ventricle Moderately increased left ventricular wall thickness. Left ventricular cavity size normal. Normal left ventricular systolic function with no obvious regional wall motion abnormalities. Left ventricular ejection fraction is estimated at 60-65 %. Grade 2 diastolic dysfunction. Right Ventricle Normal right ventricular size and function. Mild pulmonary hypertension. Right ventricular systolic pressure estimated at 40 mm hg. Right Atrium Normal right atrial size. Left Atrium Normal left atrial size. Mitral Valve Structurally normal mitral valve. No mitral stenosis. Mild mitral regurgitation. Aortic Valve Trileaflet aortic valve. No aortic valve stenosis or regurgitation. Tricuspid Valve Structurally normal tricuspid valve. Mild tricuspid regurgitation. Pulmonic Valve Structurally normal pulmonic valve. Trace pulmonic regurgitation. Pericardium No pericardial effusion. Aorta Normal size aortic root and proximal ascending aorta. CONCLUSIONS LVEF is estimated at 60-65 %. Grade II diastolic dysfunction. No obvious regional wall motion abnormality Moderate concentric LVH Normal RV size and function. RVSP estimated at 40 mmHg Mild mitral regurgitation Mild tricuspid regurgitation Previewed by: Dr Wesly Ojeda (Electronically Signed) Final Date: 05 August 2024 01:58
== END | disposition home or self-care (01) ==
LOC: RADECHMAIN 16:24
PROVIDERS: ATTEND Family Medicine
DX: I08.1 Rheumatic disorders of both mitral and tricuspid valves (principal); R01.1 Cardiac murmur, unspecified
CPT/HCPCS: 93306